=== PATIENT | male | born 1990 | race Caucasian/White ===

== ENCOUNTER 2021-04-09 20:14 | Emergency (ER) | payer OTHER ==
[~2021-04-09] VITALS: Ht 182.9 cm; Wt 114.0 kg
[2021-04-09] MEDS ORDERED: KEFLEX500 MG PO (22:19)
[2021-04-09] MEDS ORDERED: PERCOCET 5/321 COMBO PO (22:19)
[2021-04-09 22:30] VITALS: BP 140/90
== END 2021-04-09 22:34 | disposition home or self-care (01) | DRG 605 ==
LOC: ED 20:14
DX: S60.512A Abrasion of left hand, initial encounter (principal); S60.511A Abrasion of right hand, initial encounter; S50.811A Abrasion of right forearm, initial encounter; S30.810A Abrasion of lower back and pelvis, initial encounter; F17.210 Nicotine dependence, cigarettes, uncomplicated; V28.4XXA Motorcycle driver injured in noncollision transport accident in traffic accident, initial encounter